=== PATIENT | male | born 1970 | race Caucasian/White ===

== ENCOUNTER → 2022-01-01 08:56 | Outpatient (BNVA) | payer OTHER, SELFPAY | PROVIDERS: Visit Provider Psychiatry & Neurology Psychiatry | DX: F41.1 Generalized anxiety disorder (principal) | CPT/HCPCS: 80061; 83036 ==

== ENCOUNTER → 2023-04-30 10:20 | Outpatient (BNVA) | payer OTHER, SELFPAY ==
[2022-01-04 14:35] VITALS: BP 119/83; BMI 21.9
== END ==
PROVIDERS: PCP Family Medicine; Visit Provider Psychiatry & Neurology Psychiatry
DX: F41.1 Generalized anxiety disorder (principal); Z79.899 Other long term (current) drug therapy
CPT/HCPCS: 80061; 83036

== ENCOUNTER 2023-11-20 11:43 | Emergency (ER) | payer MEDICAID, SELFPAY ==
[2023-06-18 09:23] VITALS: BP 149/90; BMI 24.2
[2023-11-20 11:45] VITALS: BP 149/88; PULSE 74; RESP 16; TEMP 36.6; O2SAT 94; BMI 25.0
--- NOTE | 2023-11-20 11:45 | XR_ITS ---
WS: [id number] Exam: XR chest 1V portable [id number] Date/Time of Exam: 11/20/2023 11:45 AM Reason For Exam: sob No priors. There is infiltrate in the medial RIGHT lung base that may represent chronic change or pneumonia. Adv anced changes of the emphysema. No pleural effusions. Heart size is normal. The mediastinum is normal in contour. Fibrous changes in the upper and lower LEFT lung zones. Bony structures are intact. IMPRESSION: 1. RIGHT basal infiltrate that may represent chronic change or pneumonia. 2. Advanced changes of bullous emphysema in the upper lung zones.
--- NOTE | 2023-11-20 11:50 | ED_ITS ---
HPI - SOB/Dyspnea 2 General: Chief Complaint: Shortness of Breath/Dyspnea Stated Complaint: diff breathing x 4 weeks Time Seen by Provider: 11/20/23 11:49 Source: patient and EMS Mode of arrival: EMS Limitations: no limitations History of Present Illness: HPI Narrative: 53-year-old male with a history anxiety, COPD states he been having dyspnea for the last 4 weeks. States he had intermittent shortness of breath he denies any cough he denies any fever he is comfortable here pulse ox here is 95% on room air he had some slight left-sided chest pain he states at times last time was last night denies any pain currently. Associated symptoms: Reports chest pain; Deny abdominal pain, fever(s), nausea or vomiting Review of Systems 2 Const: Denies: fever(s), chills, body aches or change in appetite ENMT: Denies: throat pain or dental pain Card: Reports: chest pain Resp: Reports: dyspnea GI: Denies: abdominal pain, nausea, vomiting or diarrhea Musc: Denies: neck pain or back pain Skin/Breast: Denies: rash Neuro: Denies: headache(s) PFSH ED 2 PFSH: Medical History Psychiatric care Nicotine dependence, cigarettes, uncomplicated Family History (Updated 12/19/22 @ 11:49 by Daksha Fischer RN) Other Cancer Diabetes Hypertension Social History Smoking and tobacco/nicotine status: former use of tobacco/nicotine Quit status (tobacco/nicotine): has quit using Year quit tobacco: Jul, 2021 Second hand smoke exposure: Yes (Occ.) Alcohol intake: current Alcohol intake frequency: holidays/special occasions only Alcohol type: other Substance/Drug Use: current Substance/Drug use frequency: few times a month Adopted: No Caregiver/support person: Yes (cleaning lady) Lives independently: Yes Household members: none Housing: Apartment Marital status: Single Number of children: 4 Number of grandchildren: 2 Highest education level completed: GED or Equivalent service: No Current occupational status: disabled Current occupation: trying to get disability Pets and animals: No Leisure activites: other Leisure activities details: watch movies Sexually active: No Do you think of yourself as: Straight/Heterosexual Current gender identity: Male Mishel/Amish: Orthodox Special mishel needs: No Agree to transfusion: Yes Physical Exam 2 Const: COMMON NORMALS: no acute distress, patient oriented x3 and healthy appearing HENMT: COMMON NORMALS: normocephalic and atraumatic HEAD & SCALP: n ormocephalic and atraumatic Neck/C-Spine: COMMON NORMALS: full ROM and supple Chest: COMMONS NORMALS: normal inspection of the chest and normal palpation of entire chest wall Resp: COMMON NORMALS: normal respiratory effort, No retractions, No use of accessory muscles and clear to auscultation bilaterally AUSCULTATION: clear to auscultation bilaterally Cardio: COMMON NORMALS: regular rate, regular rhythm and No murmurs present (Cardio) RATE: regular rate RHYTHM: regular rhythm Extremity: COMMON NORMALS: normal to inspection and full ROM Neuro: COMMON NORMALS: patient oriented x3, moves all extremities and no focal motor deficits Psych: COMMON NORMALS: mental status grossly normal, Normal thought process present and cooperative THOUGHT PROCESS: Normal thought process present Skin: COMMON NORMALS: no rashes or lesions noted and no wounds GENERAL SKIN EXAM: no rashes or lesions noted Course 2 Vital Signs: Vital signs: Vital Signs Temperature 97.8 F 11/20/23 11:45 Pulse Rate 66 11/20/23 12:17 Respiratory Rate 15 11/20/23 12:17 Blood Pressure 148/98 11/20/23 12:17 Pulse Oximetry 98 11/20/23 12:17 Oxygen Delivery Me thod Room Air 11/20/23 11:45 MDM - SOB/Dyspnea Medical Decision Making Patient presents here with dyspnea blood work here is all normal x-rays normal he is been in no distress here his pulse ox has been normal he is stable for discharge she is follow-up with PCP return if worsening he understands agrees to plan. His troponin is normal he has no signs of pulmonary embolism. Medical Records I reviewed the patient's medical records. Lab Data I reviewed the patient's lab results. 11/20/23 12:05 11/20/23 12:05 Labs/Radiology: Laboratory Results WBC 8.79 10^3/uL (3.29-11.43) 11/20/23 12:05 RBC 5.53 10^6/uL (3.85-5.65) 11/20/23 12:05 Hgb 16.80 g/dL (11.27-16.99) 11/20/23 12:05 Hct 50.7 % (37-53) 11/20/23 12:05 MCV 91.7 fl (82-101) 11/20/23 12:05 MCH 30.4 pg (27-33) 11/20/23 12:05 MCHC 33.1 g/dL (30-55) 11/20/23 12:05 RDW 13.2 % (12.1-15.1) 11/20/23 12:05 Plt Count 351 10^3/cmm (157-399) 11/20/23 12:05 MPV 9.4 fL (7.4-10.4) 11/20/23 12:05 Neut % (Auto) 64.2 % 11/20/23 12:05 Lymph % (Auto) 22.3 % 11/20/23 12:05 [place] % (Auto) 9.9 % 11/20/23 12:05 Eos % (Auto) 2.2 % 11/20/23 12:05 Baso % (Auto) 1.1 % 11/20/23 12:05 Neut # (Auto) 5.64 10^3/uL (1.8-7.7) 11/20/23 12:05 Lymph # (Auto) 2.0 10^3/uL (0.8-4.8) 11/20/23 12:05 [place] # (Auto) 0.9 10^3/uL (0.2-0.9) 11/20/23 12:05 Eos # (Auto) 0.2 10^3/uL (0.0-0.8) 11/20/23 12:05 Baso # (Auto) 0.1 10^3/uL (0.0-0.1) 11/20/23 12:05 Nucleated RBC % (auto) 0 % 11/20/23 12:05 Nucleated RBCs # 0.0 /100WBC 11/20/23 12:05 Sodium 141 mmol/L (136-145) 11/20/23 12:05 Potassium 3.9 mmol/L (3.5-5.1) 11/20/23 12:05 Chloride 107 mmol/L (98-107) 11/20/23 12:05 Carbon Dioxide 25 mmol/L (22-29) 11/20/23 12:05 Anion Gap 12.9 (5-19) 11/20/23 12:05 BUN 10 mg/dL (6-20) 11/20/23 12:05 Creatinine 0.7 mg/dL (0.7-1.2) 11/20/23 12:05 GFR Calculation 117.5 mL/min (90-130) 11/20/23 12:05 Glucose 89 mg/dL (65-115) 11/20/23 12:05 Calculated Osmolality 291 mOsm/kg (285-295) 11/20/23 12:05 Calcium 9.4 mg/dL (8.5-10.5) 11/20/23 12:05 Total Bilirubin 0.3 mg/dL (0.15-1.2) 11/20/23 12:05 AST 21 U/L (0-40) 11/20/23 12:05 ALT 30 U/L (0-41) 11/20/23 12:05 Alkaline Phosphatase 75 U/L (40-130) 11/20/23 12:05 Troponin T Baseline < 6 ng/L (0-15) 11/20/23 12:05 Total Protein 6.3 g/dL (6.6-8.7) L 11/20/23 12:05 Albumin 4.2 g/dL (3.5-5.2) 11/20/23 12:05 Globulin 2.1 g/dL (1.3-4.6) 11/20/23 12:05 All radiology interpretation(s) finalized by discharge EKG Data EKG 1: I personally reviewed and interpreted this EKG as follows: EKG Interpretation Date: 11/20/23 EKG interpretation time: 11:52 Interpretation: nsr h [address] or t wave abnormalities qrs 81 qtc 390 Discharge Plan Discharge Patient Disposition: Home Clinical Impression: Dyspnea Condition: Stable Prescriptions: No Action atorvastatin 20 mg tablet 20 mg PO DAILY baclofen 10 mg tablet 10 mg PO DAILY fluticasone propionate [Allergy Relief (fluticasone)] 50 mcg/actuation spray,suspension 2 spray intranasal DAILY Rx Instructions: administer into each nostril meloxicam 7.5 mg tablet 15 mg PO DAILY budesonide-formoterol [Symbicort] 80-4.5 mcg/actuation HFA aerosol inhaler 2 puff inhalation BID aripiprazole [Abilify] 5 mg tablet 5 mg PO DAILY Qty: 30 2RF bupropion HCl [Wellbutrin XL] 300 mg tablet extended release 24 hr 300 mg PO QAM Qty: 30 2RF buspirone 10 mg tablet 10 mg PO TID Qty: 90 2RF duloxetine 60 mg capsule,delayed release(DR/EC) 120 mg PO DAILY Qty: 60 2RF trazodone 100 mg tablet 200 mg PO .HS PRN (Reason: insomnia) Qty: 60 2RF gabapentin 300 mg capsule 300 mg PO QID Discharge Orders: Discharge ED (Routine); Ordered 11/20/23 Ordered By: Susy Medina Referrals: Shayne Lopez MD [Physician] - 1-3 days Adrien Hoff [Primary Care Provider] - 4-7 days Discharge Diet: Advance as tolerated Discharge Activity: Resume usual activity Patient Instructions: Dyspnea (ED) Coding Level of Care Code ED Investor Relations Associate for Tomeka Lewis
--- NOTE | 2023-11-20 11:52 | ECG_ITS ---
[facility] Test Date: 2023-11-20 Pat Name: Richie Cardona Department: Room: Gender: Male Rn Quality: : 1970 Requested By: Susy Medina Order Number: [id number] Davian MD: Manan Ziegler M.D. Measurements Intervals [place] Rate: 67 P: 58 HI: 145 QRS: 77 QRSD: 81 T: 89 QT: 374 QTc: 397 Interpretive Statements SINUS RHYTHM No previous ECG available for comparison Electronically Signed On 11-20-2023 21:06:35 CIRCULAR DISTRIBUTOR by Manan Ziegler M.D. [id number]
[2023-11-20] MEDS: dexamethasone 10 mg/mL INJ IVP (12:05)
[2023-11-20 12:17] VITALS: BP 148/98; PULSE 66; RESP 15; O2SAT 98
[2023-11-20 12:21] LABS: Basophils # 0.1 10^3/uL (0.0-0.1); Basophils % 1.1 %; Eosinophils # 0.2 10^3/uL (0.0-0.8); Eosinophils % 2.2 %; Hematocrit 50.7 % (37-53); Lymphocytes % 22.3 %; Mean Corpuscular HGB Conc 33.1 g/dL (30-55); Mean Corpuscular Hemoglobin 30.4 pg (27-33); Mean Corpuscular Volume 91.7 fl (82-101); Mean Platelet Volume 9.4 fL (7.4-10.4); Monocytes # 0.9 10^3/uL (0.2-0.9); Monocytes % 9.9 %; Neutrophils # 5.64 10^3/uL (1.8-7.7); Neutrophils % 64.2 %; Nucleated Red Blood Cells % 0 %; Platelet Count 351 10^3/cmm (157-399); Red Blood Count 5.53 10^6/uL (3.85-5.65); Red Cell Distribution Width 13.2 % (12.1-15.1); White Blood Count 8.79 10^3/uL (3.29-11.43)
[2023-11-20 12:50] LABS: Alanine Aminotransferase 30 U/L (0-41); Albumin Level 4.2 g/dL (3.5-5.2); Alkaline Phosphatase 75 U/L (40-130); Anion Gap 12.9 (5-19); Aspartate Amino Transferase 21 U/L (0-40); Blood Urea Nitrogen 10 mg/dL (6-20); Calcium 9.4 mg/dL (8.5-10.5); Carbon Dioxide 25 mmol/L (22-29); Chloride 107 mmol/L (98-107); Creatinine Clr Calc Pharmacy 109.4036; Globulin 2.1 g/dL (1.3-4.6); Glomerular Filtration Rate 117.5 mL/min (90-130); Glucose 89 mg/dL (65-115); Osmolality Calculated 291 mOsm/kg (285-295); Potassium 3.9 mmol/L (3.5-5.1); Sodium 141 mmol/L (136-145); Total Bilirubin 0.3 mg/dL (0.15-1.2); Total Protein 6.3 g/dL (6.6-8.7)
[2023-11-20 12:54] LABS: Troponin(5th) Baseline < 6 ng/L (0-15)
[2023-11-20 13:12] LABS: NT Pro B Type Natriuretic Pept 61 pg/mL (0-125)
== END 2023-11-20 13:14 | disposition home or self-care (01) ==
PROVIDERS: Emergency Provider Emergency Medicine; PCP Family Medicine
DX: R06.00 Dyspnea, unspecified (principal); Z87.891 Personal history of nicotine dependence
CPT/HCPCS: 71045; 80053; 83880; 84484; 85025; 93005; 96374; 99285; J1100

== ENCOUNTER → 2023-12-30 08:51 | Outpatient (BNVA) | payer OTHER, SELFPAY ==
[2023-06-18 09:23] VITALS: BP 149/90; BMI 24.2
== END ==
PROVIDERS: PCP Family Medicine; Visit Provider Psychiatry & Neurology Psychiatry
DX: F33.1 Major depressive disorder, recurrent, moderate (principal); F41.1 Generalized anxiety disorder; Z79.899 Other long term (current) drug therapy
CPT/HCPCS: 80061; 83036

== ENCOUNTER 2024-01-05 12:33 | Outpatient (CLI) | payer MEDICAID, SELFPAY ==
[2023-06-18 09:23] VITALS: BP 149/90; BMI 24.2
--- NOTE | 2024-01-05 | ECG_ITS ---
[facility] Test Date: 2024-01-05 Pat Name: Richie Cardona Department: Room: Gender: Male Community Service Aide: Roula Lind : 1970 Requested By: Adrien Hoff Order Number: [id number] Davian MD: Manan iZegler M.D. Interpretive Statements NAME OF STUDY: TREADMILL STRESS TEST INDICATION: Dizziness, O2 sat dropped to 80% with exercise. PROCEDURE: At the baseline, the patient's blood pressure was 121/77 with a heart rate of 88. The baseline electrocardiogram showed normal sinus rhythm with Poor R wave progression. Some nonspecific T wave change. The patient exercised for 3 minutes and 57-second on a standard Jose protocol. Patient attained a maximum heart rate of 140 beats per minute(86% of the maximum predicted heart rate) with a blood pressure at the peak exercise of 142/88 mm Hg. The EKG at the peak exercise revealed nonspecific ST-T changes. Patient did not have any chest pain or any significant cardiac arrhythmias with the exercise During the recovery phase, there were no new changes. Blood pressure at the end of the recovery phase was 123/77 mm Hg with a heart rate of 92 per minute. CONCLUSION: 1. Nonspecific EKG changes with the treadmill exercise 2. No exercise-induced chest pain or cardiac arrhythmia 3. Impaired exercise tolerance, attained a maximum of 7.0 METs Electronically Signed On 01-12-2024 9:27:07 CDT by Manan Ziegler M.D. [id number]
[2024-01-05 12:38] VITALS: BMI 24.0
[2024-01-05 13:07] VITALS: BP 123/77; PULSE 90
== END 2024-01-05 12:34 | disposition home or self-care (01) ==
LOC: CDL 12:34
PROVIDERS: PCP Family Medicine; Visit Provider Family Medicine
DX: R42 Dizziness and giddiness (principal); R07.9 Chest pain, unspecified
CPT/HCPCS: 93017

== ENCOUNTER → 2024-12-22 08:51 | Outpatient (BNVA) | payer OTHER, SELFPAY ==
[2024-12-06 08:02] VITALS: BP 118/83; BMI 25.1
== END ==
PROVIDERS: PCP Family Medicine; Visit Provider Psychiatry & Neurology Psychiatry
DX: F41.1 Generalized anxiety disorder (principal); F33.1 Major depressive disorder, recurrent, moderate; Z79.899 Other long term (current) drug therapy
CPT/HCPCS: 80061; 83036